=== PATIENT | male | born 1960 | race Caucasian/White ===

== ENCOUNTER 2018-06-22 15:32 | Inpatient (IN) | payer OTHER ==
[~2018-06-22] VITALS: Ht 188 cm; Wt 78.5 kg
[2018-06-22 18:26] LABS: HEMATOCRIT 37.3 % (38.0-50.0); HEMOGLOBIN 12.9 G/DL (12.5-16.6); MCH 30.2 PG (29.0-34.0); MCHC 34.6 G/DL (30.0-36.0); MCV 87.4 FL (86-99); PLATELET COUNT 364 K/uL (156-360); RBC DIS.WIDTH-CV 13.1 % (11.8-14.6); RBC DIS.WIDTH-SD 41.9 % (39-53); RED BLOOD COUNT 4.27 M/uL (4.00-5.50)
[2018-06-22 18:36] LABS: CHLORIDE 104 mEq/L (99-109); POTASSIUM 3.6 mEq/L (3.7-5.4); SODIUM 142 mEq/L (136-147)
[2018-06-22 18:38] LABS: GLUCOSE 117 mg/dL (70-99)
[2018-06-22 18:41] LABS: SERUM ETHYL ALCOHOL < 10 mg/dL
[2018-06-22 18:42] LABS: CREATININE 0.7 mg/dL (0.6-1.3); GFR ESTIMATE (CALCULATED) > 59 mL/min/ (58.99-99999)
[2018-06-22 18:44] LABS: UREA NITROGEN (BUN) 9 mg/dL (9-23)
[2018-06-22 18:45] LABS: SALICYLATE < 5.0 MG/DL (15-30)
[2018-06-22 18:46] LABS: ACETAMINOPHEN (TYLENOL) < 10 mcg/mL (10-30)
[2018-06-22 18:53] LABS: AMPHETAMINE NEGATIVE (500 ng/mL); BARBITURATES NEGATIVE (200 ng/mL); BENZODIAZEPINES NEGATIVE (150 ng/mL); BUPRENORPHINE NEGATIVE (10 ng/mL); COCAINE NEGATIVE (150 ng/mL); METHADONE NEGATIVE (200 ng/mL); METHAMPHETAMINE NEGATIVE (500 ng/mL); OPIATES (MORPHINE) NEGATIVE (100 ng/mL); OXYCODONE NEGATIVE (100 ng/mL); PHENCYCLIDINE NEGATIVE (25 ng/mL); PROPOXYPHENE NEGATIVE (300 ng/mL); THC CANNABINOIDS NEGATIVE (50 ng/mL); TRICYCLIC ANTIDEPRESSANTS NEGATIVE (300 ng/mL)
[2018-06-23] MEDS ORDERED: TYLENOL EXTRA500 MG PO (16:23)
[2018-06-24 16:44] VITALS: BP 159/70
[2018-06-24 21:45] VITALS: BP 131/78
[2018-06-25 07:57] VITALS: BP 117/63
[2018-06-25 16:20] VITALS: BP 96/53
[2018-06-25 21:29] VITALS: BP 96/55
[2018-06-26 08:02] VITALS: BP 82/51
[2018-06-26 15:39] VITALS: BP 112/63
[2018-06-26 19:46] VITALS: BP 148/73
[2018-06-26 21:25] VITALS: BP 122/70
[2018-06-27 08:03] VITALS: BP 102/53
[2018-06-27 16:17] VITALS: BP 131/56
[2018-06-28 09:07] VITALS: BP 132/68
[2018-06-28] MEDS ORDERED: GABAPENTIN400 MG PO (09:07)
== END 2018-06-28 12:04 | disposition home or self-care (01) | DRG 882 ==
LOC: EME 15:32 → 1WEST 06-24 13:52 → EDOF 06-24 13:52 → 1WEST 06-24 13:52 → ENRESERV 06-24 15:10 → 1WEST 06-24 15:20
PROVIDERS: Emergency Medicine
DX: F43.23 Adjustment disorder with mixed anxiety and depressed mood (principal); R45.851 Suicidal ideations; F10.239 Alcohol dependence with withdrawal, unspecified; F11.23 Opioid dependence with withdrawal; M79.673 Pain in unspecified foot; R20.2 Paresthesia of skin; M54.9 Dorsalgia, unspecified; F17.210 Nicotine dependence, cigarettes, uncomplicated; Z59.0 Homelessness; Z56.0 Unemployment, unspecified
CPT/HCPCS: 80048; 85027; 90839; 97150 GO; 97165 GO; 99281; 99285; G0480; J0572; Q0177